=== PATIENT | male | born 1990 | race African-American/Black ===

== ENCOUNTER 2017-01-16 19:45 | Inpatient (IN) | payer MEDICAID ==
--- NOTE | ~2017-01-16 | CO ---
Unit #: [id number] #: [id number] Patient: SPENCER LEIGH [id number] [place] [address] [id number] I MR#: [id number] NAME: SPENCER LEIGH ROOM: [facility] Age: 26 Sex: M Admission Date: 01/16/2017 : 1990 Attending Physician: Jamal Wilhelm M.D. Primary Care Physician: Generic Doctor Not In System Consultation Date: 01/18/2017 CONSULTATION REPORT SUBJECTIVE Spencer is a 26-year-old with diabetes. He is maintained on Levemir 26 units q.h.s., NovoLog 3 units before each meal, and a NovoLog sliding scale. Accu-Cheks were monitored a.c. and h.s. and he is provided a concentrated carbohydrate diet. Accu-Cheks were reviewed on 01/18/2017. We will continue to follow. Dictated by... Maria E Gutiérrez P.A.-C. for Milka Poon/eli TD: 01/20/2017 01:24 JOB #: [id number] CONSULTATION REPORT Page 1 of 1 X Maria E Gutiérrez CONSULTATION REPORT
--- NOTE | ~2017-01-16 | PN ---
Unit #: [id number] #: [id number] Patient: SPENCER LEIGH [id number] [facility] [address] [place] [address] [id number] MR#: [id number] NAME: SPENCER LEIGH ROOM: [facility] Age: 26 Sex: M Admission Date: 01/16/2017 : 1990 Attending Physician: Jamal Wilhelm M.D. Admitting Physician: Jamal Wilhelm M.D. Primary Care Physician: Generic Doctor Not In System [facility] PROGRESS NOTES DATE 01/18/2017 DISCUSSION We have learned that the patient's next Haldol decanoate dose is in fact due tomorrow and will be provided at a dose of 100 mg. otherwise, the patient seems a bit less scattered and psychotic when seen today and staff reports no management issues. Dictated by... Jamal Wilhelm M.D. CB/leida TD: 01/19/2017 01:07 JOB #: [id number] [facility] PROGRESS NOTES Page 1 of 1 X Jamal Wilhelm MD PROGRESS NOTE
--- NOTE | ~2017-01-16 | PA ---
Unit #: [id number] #: [id number] Patient: SPENCER LEIGH [id number] [facility] [address] [place] [address] [id number] I MR#: [id number] NAME: SPENCER LEIGH ROOM: [facility] Age: 26 Sex: M Admission Date: 01/16/2017 : 1990 Date of Assessment: 01/17/2017 Attending Physician: Jamal Wilhelm M.D. Admitting Physician: Jamal Wilhelm M.D. Primary Care Physician: Generic Doctor Not In System PSYCHIATRIC ASSESSMENT IDENTIFYING INFORMATION the patient is a 26-year-old male admitted from [facility] in a state of florid psychosis. CHIEF COMPLAINT I think I ate a bug yesterday. INFORMANT(S) The patient, reliability is fair. HISTORY OF PRESENT ILLNESS The patient is a 26-year-old male admitted to the [address] [place] [address] unit after he had presented to [facility] reporting that he was fearful that bugs were crawling all over him and that he had in fact congested one yesterday. The patient was also reporting that he lives at the [facility]. The patient had reported that he is homeless and has been staying at the [facility]. It was also reported that the patient's father has taken an MIW out of the patient recently and that he is prescribed Haldol decanoate through the auspices of Sylvia Hernandez at [facility]. The patient reports that he was hospitalized at [facility] earlier this year for a period of about six weeks related to his psychotic symptoms. The patient remains floridly psychotic during today's interview continuing to complain of bugs crawling on him and concerns about ingesting bugs. He is reporting no suicidal or homicidal ideation. He does recall when he last received his Depakote shot. Other psychotropic medications include Depakote and Artane. PAST PSYCHIATRIC HISTORY As above. PAST MEDICAL HISTORY Significant for a history of diabetes mellitus. MEDICATION 1. Depakote 2. Lantus 3. Artane ALLERGIES NovoLog FAMILY HISTORY Not obtained. Unit #: [id number] #: [id number] Patient: SPENCER LEIGH SOCIAL HISTORY The patient had reported that he is homeless but maybe living with parents. There is no reported use of alcohol, tobacco or street drugs. MENTAL STATUS EXAMINATION At this time reveals the patient to be a small statured disheveled male appearing his stated age of 26 years. He is in no apparent physical distress at the time of examination. He is awake, alert, and oriented in all spheres. His mood is calm. His affect blunted and odd. Speech is impoverished but generally relevant and coherent. There are no gross deficits in memory or cognition noted. Intelligence is judged to be in the average range based on fund of knowledge. The patient is cooperative throughout the interview. He is currently reporting no suicidal or homicidal ideation. Positive psychotic symptoms as noted previously. His judgment and insight are egregiously impaired. ASSETS AND LIABILITIES ASSETS: To be assessed. LIABILITIES: Lack of resources. DIAGNOSTIC IMPRESSION 1. Chronic paranoid schizophrenia 2. Diabetes mellitus. PSYCHIATRIC PLAN/TREATMENT GOALS The patient remains hospitalized for safety and stabilization. We will contact [facility] tomorrow to ascertain when the patient last received his Haldol decanoate injection. In the meantime I will leave p.r.n. haloperidol p.o. for the patient and he will continue previously prescribed medications. ESTIMATED LENGTH OF STAY Five to seven days with followup to take place through the auspices of community mental health resources. Dictated by... Jamal Wilhelm M.D. LANA/leida TD: 01/18/2017 02:34 JOB #: [id number] PSYCHIATRIC ASSESSMENT Page 1 of 1 X Jamal Wilhelm MD X PSYCHIATRIC ASSESSMENT
--- NOTE | ~2017-01-16 | DS ---
Unit #: [id number] #: [id number] Patient: SPENCER LEIGH [id number] [facility] [address] [place] [address] [id number] I MR#: [id number] NAME: SPENCER LEIGH ROOM: [facility] Age: 26 Sex: M Admission Date: 01/16/2017 : 1990 Discharge Date: 01/20/2017 Attending Physician: Jamal Wilhelm M.D. Primary Care Physician: Generic Doctor Not In System DISCHARGE SUMMARY REASON FOR ADMISSION The patient is a 26-year-old male, admitted to the hospital with worsening symptoms of psychosis. He carries a diagnosis of schizoaffective disorder. HOSPITAL COURSE The patient was admitted to the [address] [place] [address] unit and placed on suicide precautions. He was continued on previously prescribed Artane, Depakote, Levemir as well as sliding scale insulin. Haldol 5 mg q.8 hours p.r.n. agitation was ordered. The patient did receive a dose of Haldol Decanoate on 01/19/2017 in a dose of 100 mg as he was due for his dose on that date. By 01/20/2017, the patient was in bright spirits and requested discharge. Psychotic symptoms had resolved with re-initiation of medications, and discharge was ordered. FINAL DIAGNOSES Schizoaffective disorder, bipolar type; diabetes mellitus. DISPOSITION ON DISCHARGE The patient is discharged on the following medications; Depakote 500 mg t.i.d. for mood stabilization, Artane 2 mg once daily for extrapyramidal symptoms, Levemir 26 units at bedtime for diabetic management, sliding scale NovoLog 3 units t.i.d. for diabetic management, Haldol Decanoate 100 mg q.21 days for diabetic management. DISCHARGE INSTRUCTIONS No dietary or physical restrictions were placed upon the patient at the time of discharge. FOLLOWUP Followup will take place through the auspices of community mental health resources. PROGNOSIS The patient's prognosis is considered fair. Dictated by... Jamal Wilhelm M.D. LANA/eli TD: 01/20/2017 13:35 Unit #: [id number] #: [id number] Patient: SPENCER LEIGH JOB #: [id number] DISCHARGE SUMMARY Page 1 of 1 X Jamal Wilhelm MD DISCHARGE SUMMARY
--- NOTE | ~2017-01-16 | PN ---
Unit #: [id number] #: [id number] Patient: SPENCER LEIGH [id number] [facility] [address] [place] [address] [id number] I MR#: [id number] NAME: SPENCER LEIGH ROOM: [facility] Age: 26 Sex: M Admission Date: 01/16/2017 : 1990 Attending Physician: Jamal Wilhelm M.D. Admitting Physician: Jamal Wilhelm M.D. Primary Care Physician: Generic Doctor Not In System [facility] PROGRESS NOTES DATE 01/19/2017 DISCUSSION The patient is significantly less psychotic and is pleasant and cooperative today. He has received his Haldol Decanoate shot and is probably at or near psychiatric baseline. Should he sustain progress, discharge will likely take place tomorrow. Dictated by... Jamal Wilhelm M.D. CB/nasima TD: 01/19/2017 15:22 JOB #: [id number] [facility] PROGRESS NOTES Page 1 of 1 X Jamal Wilhelm MD PROGRESS NOTE
--- NOTE | ~2017-01-16 | HP ---
Unit #: [id number] #: [id number] Patient: SPENCER LEIGH [id number] [facility] [address] [place] [address] [id number] MR#: [id number] NAME: SPENCER LEIGH ROOM: [facility] Age: 26 Sex: M Admission Date: 01/16/2017 : 1990 Attending Physician: Jamal Wilhelm M.D. Admitting Physician: Jamal Wilhelm M.D. Primary Care Physician: Generic Doctor Not In System HISTORY AND PHYSICAL HISTORY OF PRESENT ILLNESS Spencer is a 26-year-old male admitted on 01/16/[address] [place] [address] for psychosis. PAST MEDICAL HISTORY The patient denies any past medical health problems however he does have documentation previously of (1) and reports that he is (2) . PAST SURGICAL HISTORY None. SOCIAL HISTORY Smokes 10 cigarettes daily and no alcohol use. Does report occasional marijuana use. He is currently single and homeless. FAMILY HISTORY Noncontributory. REVIEW OF SYSTEMS CONSTITUTIONAL: No fever or chills. HEENT: Denies any sore throat, ear pain or runny nose. CARDIOVASCULAR: Denies chest pain, irregular heart rhythm or palpitations. CHEST: Denies shortness of breath or cough. No hemoptysis. GASTROINTESTINAL: Denies nausea, vomiting, diarrhea or chronic constipation. ENDOCRINE: Denies history of increased thirst or urination. No recent significant weight loss or gain. GENITOURINARY: Denies dysuria, frequency, or hematuria. SKIN: Denies any rashes. HEMATOLOGIC: Denies history of increased bleeding or bruising. MUSCULOSKELETAL: Denies any hot, swollen joints. No generalized muscle pain. NEUROLOGIC: Denies problems with vision or speech. No frequent, severe headaches. No numbness, tingling or weakness in any extremities. Denies loss of bladder or bowel control. CURRENT MEDICATIONS 1. Depakote 2. Lantus ALLERGIES Unit #: [id number] #: [id number] Patient: SPENCER LEIGH NovoLog PHYSICAL EXAMINATION GENERAL: Alert, oriented, in no acute distress. VITAL SIGNS: Blood pressure 125/67, heart rate 72, temperature 98.1. HEIGHT: 5 foot 4 inches. WEIGHT: 125 pounds. SKIN: Warm and dry without rash or lesion. HEENT: Normocephalic. TMs not viewed. Oral and nasal passages clear. Conjunctivae clear. PERRLA. EOMs intact. NECK: Supple without lymphadenopathy or thyromegaly. HEART: Regular rate and rhythm without murmur. LUNGS: Clear. ABDOMEN: Soft, nontender, without masses or hepatosplenomegaly. : Not done. EXTREMITIES: No evidence of cyanosis, clubbing or edema. Moves all without focal deficit. NEUROLOGICAL: Grossly within normal limits. Cranial Nerves: II: Visual doe are intact. III, IV AND : Extraocular movements are intact. Pupils are equal, round and reactive to light. V: Facial sensation is grossly normal. VII: Facial movements and expression are normal. VIII: Auditory acuity grossly intact. IX, X: Uvula is midline. Phonation is normal. XI: Patient shrugs shoulders and turns head normally. XII: Tongue protrudes in the midline. Sensory and Motor Function: Sensory and motor sensation is grossly normal. Motor: moves all extremities well. Coordination: Gait is normal. Deep Tendon Reflexes: Intact. IMPRESSION Psychiatric admission. RECOMMENDATIONS Psychiatric, per psychiatrist. MEDICAL: I see no contraindications to participating in facility's activities. MEDICAL PROGNOSIS Good. MEDICAL CONDITION Stable. Dictated by... Giovani Jin/leida TD: 01/17/2017 23:30 JOB #: [id number] Unit #: [id number] #: [id number] Patient: SPENCER LEIGH HISTORY AND PHYSICAL Page 1 of 1 X JADYN HUGO APRN HISTORY AND PHYSICAL
== END 2017-01-20 14:00 | disposition home or self-care (01) | DRG 885 ==
LOC: P1S 19:45
DX: F25.0 Schizoaffective disorder, bipolar type (principal); E11.9 Type 2 diabetes mellitus without complications; Z79.4 Long term (current) use of insulin; F17.210 Nicotine dependence, cigarettes, uncomplicated
CPT/HCPCS: 80164; 82140; 82947